=== PATIENT | female | born 1940 | race Hispanic/Latino ===

== ENCOUNTER 2017-04-27 06:13 | Day surgery (SDC) | payer MEDICARE ==
[2017-04-27 07:03] VITALS: BMI 25.1
[2017-04-27] MEDS ORDERED: Propofol 10 mg/ml Inj (20 ML) ONE (07:30)
[2017-04-27] MEDS ORDERED: Lidocaine Hydrochloride 5 ML INJ ONE (07:34)
[2017-04-27] MEDS ORDERED: Lactated Ringer's 500 ML IV ONE ×2 (07:57)
--- NOTE | 2017-04-27 08:15 | CP.SDSHP ---
Same Day Surgery H & P - History Proposed Procedure: Colonoscopy Pre-Op Diagnosis: Screening colonoscopy - Previous Medical/Surgical History Cardiac: Hypertension, ASHD/CAD Pulmonary: Asthma Endocrine/Metabolic: Thyroid Disease Previous Surgical History: Cholecystectomy. Thyroid - Allergies Allergies: Allergies ciprofloxacin Allergy (Verified 04/27/17 07:02) chest pressure amoxicillin Adverse Reaction (Verified 04/27/17 07:02) DIARRHEA amoxicillin trihydrate [From Augmentin] Adverse Reaction (Verified 04/27/17 07: 02) DIARRHEA cortisone Adverse Reaction (Verified 04/27/17 07:02) DIZZINESS potassium clavulanate [From Augmentin] Adverse Reaction (Verified 04/27/17 07:02 ) DIARRHEA - Current Medications Current Medications: Reviewed, per reconciliation - Physical Exam General Appearance: wdwn nad Vital Signs: Vital Signs 04/27/17 07:37 Temperature 97 F L Pulse Rate 62 Respiratory 20 Rate Blood Pressure 131/68 O2 Sat by Pulse 97 Oximetry Mental Status: Alert & Oriented x3 Heart: WNL Lungs: WNL GI: WNL - {Optional Preform as Required} Abdomen: Other (RUQ surgical scar) Other Pertinent Findings: leg edema bilat - Impression Impression: screening average risk Pt. Evaluated Today:Candidate for Anesthesia & Procedure: Yes - Date & Time Date: 04/27/17 Time: 08:15 Short Stay Discharge - Short Stay Discharge Admitting Diagnosis/Reason for Visit: SCREENING Disposition: HOME/ ROUTINE
[2017-04-27 08:19] VITALS: O2SAT 100
[2017-04-27 08:55] VITALS: TEMP 97.4
[2017-04-27 09:29] VITALS: RESP 16
[2017-04-27 10:00] VITALS: BP 149/60; PULSE 65
== END 2017-04-27 09:59 | disposition home or self-care (01) ==
LOC: C.ENDO 06:13
PROVIDERS: ATTEND Internal Medicine Gastroenterology
DX: Z12.11 Encounter for screening for malignant neoplasm of colon (principal); D12.4 Benign neoplasm of descending colon; K64.0 First degree hemorrhoids; I10 Essential (primary) hypertension; I25.10 Atherosclerotic heart disease of native coronary artery without angina pectoris; J45.909 Unspecified asthma, uncomplicated; E03.9 Hypothyroidism, unspecified; K21.9 Gastro-esophageal reflux disease without esophagitis; G43.909 Migraine, unspecified, not intractable, without status migrainosus
CPT/HCPCS: 45385; 88305; J2704; J7120